=== PATIENT | female | born 1930 | race Caucasian/White ===

== ENCOUNTER 2020-10-27 06:11 | Day surgery (SDC) | payer OTHER ==
[2020-10-23 15:40] VITALS: BMI 28.3
[2020-10-27] MEDS: PHENYLEPHRINE 2.5% OPHTH SOLN 15 ML BOTTLE ONE ×3 (07:40→07:50)
[2020-10-27] MEDS: CYCLOPENTOLATE 2% OPHTH SOLN 2 ML BOTTLE ONE ×3 (07:40→07:50)
[2020-10-27] MEDS: TROPICAMIDE 1% OPHTH SOLN 15 ML BOTTLE ONE ×3 (07:40→07:50)
[2020-10-27] MEDS: CIPROFLOXACIN 0.3% EYE DROPS 5 ML BOTTLE ONE ×3 (07:40→07:50)
[2020-10-27] MEDS ORDERED: MIDAZOLAM HCL 2 MG/2 ML SINGLE DOSE VIAL ONE (08:09)
[2020-10-27] MEDS ORDERED: ACETAMINOPHEN 325 MG TABLET (FP) PO PRN (08:16)
[2020-10-27 09:35] VITALS: TEMP 97.5
[2020-10-27 09:37] VITALS: BP 146/69; PULSE 68
== END 2020-10-27 09:35 | disposition home or self-care (01) ==
LOC: FASU 06:11
PROVIDERS: ATTEND Ophthalmology
PROC: 08RJ3JZ Replacement of Right Lens with Synthetic Substitute, Percutaneous Approach (ICD-10-PCS; principal; 2020-10-27 08:29)
DX: H25.11 Age-related nuclear cataract, right eye (principal)